=== PATIENT | female | born 1955 | race Two or more races ===

== ENCOUNTER 2024-01-01 10:11 | Inpatient (IN) | payer MEDICARE, OTHER ==
[~2024-01-01] VITALS: Ht 160 cm; Wt 76.2 kg
[~2024-01-01 10:11] MED LIST: ESOM40CA83 PO; FURO1TAB31 PO
[2024-01-01 11:09] LABS: Basophils # (auto) 0.1 10 ^3/uL (0-0.2); Basophils % (auto) 0.4 % (0.0-2.0); Hemoglobin 11.6 g/dL (12.2-16.2)
[2024-01-01 11:12] LABS: Eosinophils # (auto) 1.5 10 ^3/uL (0-0.8); Eosinophils % (auto) 6.7 % (0.0-7.0); Hematocrit 36.1 % (36.0-46.0); Lymphocytes # (auto) 1.3 10 ^3/uL (0.4-5.4); Lymphocytes % (auto) 5.7 % (10.0-50.0); Mean Corpuscular Hemoglobin 24.7 pg (28.0-32.0); Mean Corpuscular Volume 77.1 fL (80.0-100.0); Monocytes % (auto) 4.5 % (0.0-12.0); Neutrophils % (auto) 82.7 % (37.0-80.0); Platelet Count (auto) 389 10^3/uL (140-450); Red Blood Cells 4.68 10^6/uL (4.0-5.20); Red Cell Distribution Width 17.9 % (11.8-14.3)
[2024-01-01] MEDS: diphenhdrAMINE HCL 50 MG/1 ML VL IV ONE (11:15)
[2024-01-01] MEDS: methylPREDNISolone SOD SUCC 125 MG/2 ML VL IV ONE (11:15)
[2024-01-01 11:22] LABS: Alanine Aminotransferase 21 U/L (7-40); Albumin 3.3 g/dL (3.2-4.8); Alkaline Phosphatase 108 U/L (46-116); Anion Gap 7 (5-15); Aspartate Aminotransferase 17 U/L (13-40); BUN/Creatinine Ratio 19.7 (10.0-20.0); Blood Urea Nitrogen 15 mg/dL (9-23); Calcium 8.7 mg/dL (8.7-10.4); Carbon Dioxide 22 mmol/L (20-30); Chloride 113 mmol/L (98-107); Glucose 126 mg/dL (74-106); Potassium 3.3 mmol/L (3.5-5.1); Sodium 142 mmol/L (136-145)
[2024-01-01 11:23] LABS: Bilirubin, Total 0.3 mg/dL (0.2-1.0); Total Protein 5.5 g/dL (5.7-8.2)
[2024-01-01 12:30] VITALS: PULSE 74; RESP 20; O2SAT 96
[2024-01-01] MEDS: levoFLOXacin 500MG 100 ML IV ONE (13:22)
[2024-01-01] MEDS: SODIUM CHLORIDE 0.9% 1,000 ML IV ONE (14:00)
[2024-01-01] MEDS: ENOXAPARIN SOD 40 MG/0.4 ML SYRINGE SC SCH (18:15)
[2024-01-01] MEDS: FAMOTIDINE (10MG/ML) 2ML VL IV ONE (18:15)
[2024-01-01] MEDS ORDERED: NITROGLYCERIN 0.4 MG SL TAB SL PRN (18:15)
[2024-01-01] MEDS: SODIUM CHLORIDE 0.9% 1,000 ML IV SCH (18:15)
[2024-01-01] MEDS: metroNIDAZOLE 500MG/100ML 100 ML IV ONE (18:15)
[2024-01-01] MEDS ORDERED: IPRATROPIUM BROM 0.5 MG/2.5ML INH SOL NEB PRN (18:15)
[2024-01-01] MEDS ORDERED: ALBUTEROL SULF 2.5 MG/0.5ML(0.5%) NEB SOLN NEB PRN (18:15)
[2024-01-01] MEDS: POTASSIUM CHL 20 Meq TABLET PO ONE (18:15)
[2024-01-01 19:33] VITALS: BP 96/57; PULSE 76; RESP 20; O2SAT 96
[2024-01-01 19:42] LABS: Magnesium 1.7 mg/dL (1.6-2.6)
[2024-01-01 20:58] VITALS: O2SAT 95
[2024-01-01 20:59] VITALS: O2SAT 95
[2024-01-01 21:15] VITALS: BP 115/66; PULSE 103; RESP 18; TEMP 97.5; O2SAT 92
[2024-01-01] MEDS: FAMOTIDINE (10MG/ML) 2ML VL IV SCH (22:00)
[2024-01-01] MEDS: metroNIDAZOLE 500MG/100ML 100 ML IV SCH (22:01)
[2024-01-01] MEDS: methylPREDNISolone SOD SUCC 125 MG/2 ML VL IV SCH (22:03)
[2024-01-01] MEDS ORDERED: BUDE1AER4 INH (22:53)
[2024-01-01] MEDS ORDERED: ASPI-543 PO (22:53)
[2024-01-01] MEDS ORDERED: MORP15TA PO (22:53)
[2024-01-01] MEDS ORDERED: OMEP-448 (22:53)
[2024-01-01] MEDS ORDERED: HYDR-4902 PO (22:53)
[2024-01-01] MEDS ORDERED: BISA10SU45 RE (22:53)
[2024-01-01] MEDS ORDERED: PRE5T PO (22:53)
[2024-01-01] MEDS ORDERED: MET25T PO (22:53)
[2024-01-01] MEDS ORDERED: GABA-1308 PO (22:53)
[2024-01-01] MEDS ORDERED: CARI-578 PO (22:53)
[2024-01-01] MEDS ORDERED: MORP1TAB14 PO (22:53)
[2024-01-01] MEDS ORDERED: CHL4PW PO (22:53)
[2024-01-01] MEDS ORDERED: ALBU0.084 NEB (22:53)
[2024-01-01] MEDS ORDERED: LEVO100T8 PO (22:53)
[2024-01-01] MEDS ORDERED: MOMLQ PO (22:53)
[2024-01-01] MEDS ORDERED: ATOR40TA52 PO (22:53)
[2024-01-01] MEDS ORDERED: CLOP75TA70 PO (22:53)
[2024-01-01 22:54] VITALS: BP 115/66; PULSE 103; RESP 18; TEMP 97.5; O2SAT 92
[2024-01-02] VITALS (12 sets, daily range): BP systolic 116–161; BP diastolic 59–76; PULSE 53–93; RESP 15–19; TEMP 97.4–98.3; O2SAT 94–98
[2024-01-02 06:18] LABS: Basophils # (auto) 0 10 ^3/uL (0-0.2); Basophils % (auto) 0.1 % (0.0-2.0); Eosinophils # (auto) 0 10 ^3/uL (0-0.8); Eosinophils % (auto) 0.1 % (0.0-7.0); Hematocrit 32.6 % (36.0-46.0); Hemoglobin 10.9 g/dL (12.2-16.2); Lymphocytes # (auto) 1.2 10 ^3/uL (0.4-5.4); Lymphocytes % (auto) 8.6 % (10.0-50.0); Mean Corpuscular Hemoglobin 25.6 pg (28.0-32.0); Mean Corpuscular Hgb Conc. 33.5 g/dL (32.0-36.0); Mean Corpuscular Volume 76.3 fL (80.0-100.0); Monocytes # (auto) 0.3 10 ^3/uL (0-1.3); Monocytes % (auto) 2.4 % (0.0-12.0); Neutrophils # (auto) 11.9 10 ^3/uL (1.6-8.6); Neutrophils % (auto) 88.8 % (37.0-80.0); Platelet Count (auto) 409 10^3/uL (140-450); Red Blood Cells 4.28 10^6/uL (4.0-5.20); White Blood Cell 13.4 10^3/uL (4.4-10.8)
[2024-01-02 06:31] LABS: Alanine Aminotransferase 18 U/L (7-40); Albumin 3.4 g/dL (3.2-4.8); Alkaline Phosphatase 101 U/L (46-116); Anion Gap 10 (5-15); Aspartate Aminotransferase 13 U/L (13-40); BUN/Creatinine Ratio 27.9 (10.0-20.0); Bilirubin, Total 0.3 mg/dL (0.2-1.0); Blood Urea Nitrogen 19 mg/dL (9-23); Calcium 8.7 mg/dL (8.7-10.4); Carbon Dioxide 20 mmol/L (20-30); Chloride 115 mmol/L (98-107); Glucose 119 mg/dL (74-106); Potassium 3.4 mmol/L (3.5-5.1); Sodium 145 mmol/L (136-145); Total Protein 5.6 g/dL (5.7-8.2)
[2024-01-02] MEDS ORDERED: SODIUM PHOSPHATES 20 MEQ in SODIUM CHL 0.9% 100 ML IV ONE (07:30)
[2024-01-02] MEDS: LEVOTHYROXINE SODIUM 100 MCG TAB PO ONE (09:42)
[2024-01-02] MEDS: METOPROLOL TARTRATE 25 MG TAB PO SCH (09:43)
[2024-01-02] MEDS: FUROSEMIDE 40 MG TAB PO SCH (09:44)
[2024-01-02] MEDS: levoFLOXacin 500MG 100 ML IV SCH (09:52)
[2024-01-02] MEDS: POTASSIUM PHOSPHATE 22 MEQ in SODIUM CHL 0.9% 100 ML IV ONE (10:09)
[2024-01-02] MEDS ORDERED: ASPirin 81 mg TAB PO ONE (11:00)
[2024-01-02 11:28] LABS: Magnesium 1.9 mg/dL (1.6-2.6)
[2024-01-02 11:30] LABS: Phosphorus 3.1 mg/dL (2.4-5.1)
[2024-01-02 11:38] LABS: CRP High Sensitivity 1.8 mg/dL (<1.0)
[2024-01-02] MEDS ORDERED: POTASSIUM EFFERVESENT TAB 25 MEQ GT ONE (12:45)
[2024-01-02] MEDS: cefTRIAXone 1GM/50ML D5W 50 ML IV ONE (13:07)
[2024-01-02 14:01] LABS: INR 1.39 (0.9-1.15); Partial Thromboplastin Time 32.1 SEC (24.5-34.5); Prothrombin Time 14.4 sec (9.3-11.8)
[2024-01-02] MEDS: MORPHINE SULFATE INJ 2 MG/ml SYRG IV PRN (14:51)
[2024-01-02] MEDS: ERGOCALCIFEROL 50,000 UNIT(1.25MG) CAP PO SCH (17:39)
[2024-01-02] MEDS: methylPREDNISolone SOD SUCC 40 MG/ML VL IV SCH (20:40)
[2024-01-03] VITALS (12 sets, daily range): BP systolic 114–134; BP diastolic 62–79; PULSE 67–94; RESP 16–20; TEMP 97.6–98.4; O2SAT 91–99
[2024-01-03] MEDS: diphenhdrAMINE HCL 50 MG/1 ML VL IV PRN (00:01)
[2024-01-03] MEDS: LEVOTHYROXINE SODIUM 100 MCG TAB PO SCH (04:58)
[2024-01-03 08:11] LABS: Basophils # (auto) 0 10 ^3/uL (0-0.2); Eosinophils # (auto) 0 10 ^3/uL (0-0.8); Lymphocytes # (auto) 1.7 10 ^3/uL (0.4-5.4); Nucleated Red Blood Cells % 0.1 %
[2024-01-03 08:13] LABS: Eosinophils % (auto) 0.4 % (0.0-7.0); Hematocrit 33.3 % (36.0-46.0); Hemoglobin 10.6 g/dL (12.2-16.2); Lymphocytes % (auto) 12.7 % (10.0-50.0); Mean Corpuscular Hemoglobin 24.4 pg (28.0-32.0); Mean Corpuscular Hgb Conc. 31.9 g/dL (32.0-36.0); Mean Corpuscular Volume 76.7 fL (80.0-100.0); Monocytes # (auto) 0.8 10 ^3/uL (0-1.3); Monocytes % (auto) 5.7 % (0.0-12.0); Neutrophils # (auto) 10.7 10 ^3/uL (1.6-8.6); Neutrophils % (auto) 81.2 % (37.0-80.0); Platelet Count (auto) 393 10^3/uL (140-450); Red Blood Cells 4.35 10^6/uL (4.0-5.20); Red Cell Distribution Width 18.1 % (11.8-14.3); White Blood Cell 13.2 10^3/uL (4.4-10.8)
[2024-01-03] MEDS: ONDANSETRON HCL 4 MG/2 ML VIAL IV PRN (08:24)
[2024-01-03] MEDS: cefTRIAXone 1GM/50ML D5W 50 ML IV SCH (08:27)
[2024-01-03 08:35] LABS: Calcium 8.9 mg/dL (8.7-10.4); Chloride 113 mmol/L (98-107); Potassium 3.4 mmol/L (3.5-5.1); Sodium 144 mmol/L (136-145)
[2024-01-03 08:39] LABS: Anion Gap 7 (5-15); Carbon Dioxide 24 mmol/L (20-30)
[2024-01-03 08:41] LABS: BUN/Creatinine Ratio 33.3 (10.0-20.0); Blood Urea Nitrogen 22 mg/dL (9-23); Glucose 95 mg/dL (74-106)
[2024-01-03] MEDS: POTASSIUM CHL 20 Meq TABLET PO SCH (13:14)
[2024-01-03] MEDS: IPRATROPIUM BROM 0.5 MG/2.5ML INH SOL NEB SCH (18:00)
[2024-01-03] MEDS: LEVALBUTEROL HCL 1.25 MG/3 ML NEB NEB SCH (19:31)
[2024-01-04] VITALS (14 sets, daily range): BP systolic 110–129; BP diastolic 46–84; PULSE 61–99; RESP 16–20; TEMP 97.6–98.4; O2SAT 90–99
[2024-01-04 06:25] LABS: Basophils # (auto) 0 10 ^3/uL (0-0.2); Basophils % (auto) 0.2 % (0.0-2.0); Eosinophils # (auto) 0.3 10 ^3/uL (0-0.8); Monocytes # (auto) 1.2 10 ^3/uL (0-1.3)
[2024-01-04 06:27] LABS: Chloride 110 mmol/L (98-107); Potassium 3.3 mmol/L (3.5-5.1); Sodium 143 mmol/L (136-145)
[2024-01-04 06:28] LABS: Anion Gap 8 (5-15); Carbon Dioxide 25 mmol/L (20-30); Eosinophils % (auto) 2.3 % (0.0-7.0); Hematocrit 33.5 % (36.0-46.0); Hemoglobin 10.9 g/dL (12.2-16.2); Lymphocytes % (auto) 24.1 % (10.0-50.0); Mean Corpuscular Hemoglobin 25.1 pg (28.0-32.0); Mean Corpuscular Hgb Conc. 32.7 g/dL (32.0-36.0); Mean Corpuscular Volume 76.8 fL (80.0-100.0); Monocytes % (auto) 9.8 % (0.0-12.0); Neutrophils # (auto) 7.9 10 ^3/uL (1.6-8.6); Neutrophils % (auto) 63.6 % (37.0-80.0); Nucleated Red Blood Cells % 0.1 %; Platelet Count (auto) 355 10^3/uL (140-450); Red Blood Cells 4.36 10^6/uL (4.0-5.20); Red Cell Distribution Width 18.3 % (11.8-14.3); White Blood Cell 12.4 10^3/uL (4.4-10.8)
[2024-01-04 06:29] LABS: Calcium 8.8 mg/dL (8.7-10.4)
[2024-01-04 06:33] LABS: BUN/Creatinine Ratio 31.4 (10.0-20.0); Blood Urea Nitrogen 22 mg/dL (9-23); Glucose 80 mg/dL (74-106)
[2024-01-04] MEDS: MAGNESIUM SULFATE 1GM/100ML 100 ML IV ONE (08:52)
[2024-01-04] MEDS: POTASSIUM CHL 20 Meq TABLET PO ONE (08:53)
[2024-01-04] MEDS: POTASSIUM EFFERVESENT TAB 25 MEQ PO SCH (09:09)
[2024-01-04] MEDS: methylPREDNISolone SOD SUCC 40 MG/ML VL IV SCH (09:10)
[2024-01-04] MEDS: DOCUSATE SOD 100 MG CAP PO PRN (09:13)
[2024-01-04 14:02] LABS: Potassium 4.1 mmol/L (3.5-5.1)
[2024-01-04 14:09] LABS: Magnesium 2.2 mg/dL (1.6-2.6)
[2024-01-04] MEDS ORDERED: ERGO1CAP23 PO (18:47)
[2024-01-05] VITALS (16 sets, daily range): BP systolic 108–143; BP diastolic 70–79; PULSE 68–107; RESP 16–18; TEMP 97.8–98.5; O2SAT 90–98
[2024-01-05 06:11] LABS: Chloride 106 mmol/L (98-107); Sodium 141 mmol/L (136-145)
[2024-01-05 06:12] LABS: Anion Gap 7 (5-15); Basophils # (auto) 0 10 ^3/uL (0-0.2); Basophils % (auto) 0.3 % (0.0-2.0); Calcium 8.8 mg/dL (8.7-10.4); Carbon Dioxide 28 mmol/L (20-30); Eosinophils # (auto) 0.3 10 ^3/uL (0-0.8); Eosinophils % (auto) 2.5 % (0.0-7.0); Hematocrit 35.9 % (36.0-46.0); Monocytes # (auto) 1.2 10 ^3/uL (0-1.3); Platelet Count (auto) 362 10^3/uL (140-450); Red Cell Distribution Width 18.2 % (11.8-14.3); White Blood Cell 12.1 10^3/uL (4.4-10.8)
[2024-01-05 06:17] LABS: BUN/Creatinine Ratio 30.8 (10.0-20.0); Blood Urea Nitrogen 20 mg/dL (9-23); Glucose 83 mg/dL (74-106); Lymphocytes # (auto) 3.5 10 ^3/uL (0.4-5.4); Lymphocytes % (auto) 28.9 % (10.0-50.0); Mean Corpuscular Hemoglobin 25.3 pg (28.0-32.0); Mean Corpuscular Hgb Conc. 33.3 g/dL (32.0-36.0); Mean Corpuscular Volume 75.9 fL (80.0-100.0); Monocytes % (auto) 10.2 % (0.0-12.0); Neutrophils % (auto) 58.1 % (37.0-80.0); Nucleated Red Blood Cells % 0.1 %; Red Blood Cells 4.73 10^6/uL (4.0-5.20)
[2024-01-05] MEDS ORDERED: TAMS-35 PO (19:40)
[2024-01-05] MEDS: TAMSULOSIN HYDROCHLORIDE 0.4 MG CAP PO ONE (21:35)
[2024-01-06] VITALS (15 sets, daily range): BP systolic 104–133; BP diastolic 69–96; PULSE 77–101; RESP 16–18; TEMP 97.6–98.5; O2SAT 91–98
[2024-01-06 06:28] LABS: Anion Gap 5 (5-15); Carbon Dioxide 27 mmol/L (20-30); Chloride 107 mmol/L (98-107); Potassium 4.4 mmol/L (3.5-5.1); Sodium 139 mmol/L (136-145)
[2024-01-06 06:30] LABS: Calcium 9.2 mg/dL (8.7-10.4)
[2024-01-06 06:34] LABS: BUN/Creatinine Ratio 42.2 (10.0-20.0); Blood Urea Nitrogen 27 mg/dL (9-23); Glucose 88 mg/dL (74-106)
[2024-01-06] MEDS: TAMSULOSIN HYDROCHLORIDE 0.4 MG CAP PO SCH (18:00)
[2024-01-07] VITALS (18 sets, daily range): BP systolic 97–128; BP diastolic 69–80; PULSE 69–91; RESP 16–19; TEMP 97.8–98.3; O2SAT 92–99
[2024-01-07 06:40] LABS: Basophils # (auto) 0.1 10 ^3/uL (0-0.2); Eosinophils # (auto) 0.9 10 ^3/uL (0-0.8); Eosinophils % (auto) 6.7 % (0.0-7.0); Lymphocytes # (auto) 2.9 10 ^3/uL (0.4-5.4); Mean Corpuscular Hemoglobin 25.1 pg (28.0-32.0); White Blood Cell 14.2 10^3/uL (4.4-10.8)
[2024-01-07 06:43] LABS: Basophils % (auto) 0.6 % (0.0-2.0); Hematocrit 38.4 % (36.0-46.0); Hemoglobin 12.5 g/dL (12.2-16.2); Lymphocytes % (auto) 20.4 % (10.0-50.0); Mean Corpuscular Hgb Conc. 32.7 g/dL (32.0-36.0); Mean Corpuscular Volume 76.7 fL (80.0-100.0); Monocytes % (auto) 7.2 % (0.0-12.0); Neutrophils # (auto) 9.2 10 ^3/uL (1.6-8.6); Neutrophils % (auto) 65.1 % (37.0-80.0); Platelet Count (auto) 300 10^3/uL (140-450); Red Blood Cells 5.01 10^6/uL (4.0-5.20); Red Cell Distribution Width 18.3 % (11.8-14.3)
[2024-01-07 07:01] LABS: Anion Gap 8 (5-15); Calcium 9.2 mg/dL (8.7-10.4); Carbon Dioxide 26 mmol/L (20-30); Chloride 107 mmol/L (98-107); Potassium 4.1 mmol/L (3.5-5.1); Sodium 141 mmol/L (136-145)
[2024-01-07 07:07] LABS: BUN/Creatinine Ratio 25.8 (10.0-20.0); Blood Urea Nitrogen 16 mg/dL (9-23); Glucose 84 mg/dL (74-106)
[2024-01-07] MEDS: GABAPENTIN 300 MG CAP PO SCH ×2 (16:06→21:28)
[2024-01-08] VITALS (17 sets, daily range): BP systolic 96–111; BP diastolic 61–88; PULSE 71–110; RESP 14–19; TEMP 97.9–98.8; O2SAT 93–100
[2024-01-09] VITALS (9 sets, daily range): BP systolic 90–116; BP diastolic 62–75; PULSE 79–111; RESP 17–18; TEMP 98.1–98.7; O2SAT 91–100
[2024-01-09] MEDS: HYDROcodone-ACET 5/325MG TAB PO PRN (01:46)
[2024-01-09] MEDS: GABAPENTIN 300 MG CAP PO SCH (09:24)
== END 2024-01-09 21:00 | disposition hospice, home (50) | DRG 607 ==
LOC: EDBD 10:11 → ER 10:16 → TELE 18:30 → TELE-WESTW 21:18 → WEST WING 01-06 15:10
PROVIDERS: ADMIT Internal Medicine Pulmonary Disease; ATTEND Internal Medicine Pulmonary Disease
DX: L27.0 Generalized skin eruption due to drugs and medicaments taken internally (principal); T85.590A Other mechanical complication of bile duct prosthesis, initial encounter; J96.10 Chronic respiratory failure, unspecified whether with hypoxia or hypercapnia; R65.10 Systemic inflammatory response syndrome (SIRS) of non-infectious origin without acute organ dysfunction; T50.8X5A Adverse effect of diagnostic agents, initial encounter; I50.9 Heart failure, unspecified; Z51.5 Encounter for palliative care; J44.89 Other specified chronic obstructive pulmonary disease; E87.6 Hypokalemia; E03.9 Hypothyroidism, unspecified; E55.9 Vitamin D deficiency, unspecified; K57.30 Diverticulosis of large intestine without perforation or abscess without bleeding; N20.0 Calculus of kidney; N83.202 Unspecified ovarian cyst, left side; L89.891 Pressure ulcer of other site, stage 1; E11.42 Type 2 diabetes mellitus with diabetic polyneuropathy; Z86.16 Personal history of COVID-19; Z96.649 Presence of unspecified artificial hip joint; Z88.0 Allergy status to penicillin; Z88.6 Allergy status to analgesic agent; X58.XXXA Exposure to other specified factors, initial encounter; Y84.8 Other medical procedures as the cause of abnormal reaction of the patient, or of later complication, without mention of misadventure at the time of the procedure; Y92.89 Other specified places as the place of occurrence of the external cause; T36.0X5A Adverse effect of penicillins, initial encounter
CPT/HCPCS: 36415; 71045; 74176; 76705; 80048; 80053; 80061; 82306; 82607; 82962; 83036; 83605; 83735; 84100; 84132; 84443; 85025; 85610; 85730; 86141; 87040; 87081; 93306; 94640; 96365; 96375; 97110; 97163; 97530; G0378; J1956; J2405; J3490